=== PATIENT | female | born 1995 | race Caucasian/White ===

== ENCOUNTER 2016-07-30 16:08 | Emergency (ER) | payer OTHER ==
[~2016-07-30] VITALS: Ht 170.2 cm; Wt 75.0 kg
[~2016-07-30 16:08] MED LIST: AMOX500T PO; METR500T10 PO; MIREIUD I-UTERINE; SPRI28TA PO
[2016-07-30 16:09] VITALS: BP 134/75; PULSE 120; RESP 20; TEMP 97.7; O2SAT 100
[2016-07-30 20:07] VITALS: BP 153/87; PULSE 107; RESP 18; TEMP 98.8; O2SAT 100
[2016-07-30] MEDS ORDERED: SODIUM CHLOR 0.9% 1000 ML INJ 1,000 ML IV ONE ×2 (20:15)
[2016-07-30] MEDS ORDERED: SODIUM CHLORIDE 0.9% FLUSH 10 ML FLUSH IVF PRN (20:15)
--- NOTE | 2016-07-30 20:34 | RADRPT ---
EXAM DATE/TIME: 07/30/2016 20:13 [place] COMPARISON: No previous studies available for comparison. INDICATIONS : Palpitations MEDICAL HISTORY : None. SURGICAL HISTORY : None. ENCOUNTER: Initial ACUITY: >1 year PAIN SCORE: 0/10 LOCATION: chest FINDINGS: A single view of the chest demonstrates the lungs to be symmetrically aerated without evidence of mas s, infiltrate or effusion. The cardiomediastinal contours are unremarkable. Osseous structures are intact. CONCLUSION: No evidence of acute cardiopulmonary disease. Stepan Edgar MD on July 30, 2016 at 20:31 Board Certified Radiologist. This report was verified electronically.
[2016-07-30 20:49] VITALS: O2SAT 99
--- NOTE | 2016-07-30 20:56 | PD ---
HPI Chief Complaint: Informatics Physician Liaison Problem/Complaint Time Seen by Provider: 20:14 Travel History International Travel<30 days: No Contact w/Intl Traveler<30days: No Traveled to known affect area: No History of Present Illness HPI Patient is a 20 year old female who presents to ER with c/o of irregular vaginal bleeding and dizzyness. Patient reports that her filter changer Dr. Nena Kelly removed her IUD last week due to an infection. Reports that she has been on amoxicillin as well as flagyl since then. Reports that since then, she has had irregular vaginal bleeding and has been passing blood clots. Reports that she has been using heavy pads - around 5 per day. Reports that she has been feeling lightheaded and dizzy. Reports that she feels near syncope. Reports that she has also been having increased palpitations. Patient reports that she has been having palpitations for the past 2 years. Reports that whenever she feels anxious, she has palpitations and sob. Reports palpitations "come and go " and reports that nothing really makes her symptoms better or worse. Patient denies fever/chills. Denies n/v. Denies constipation/diarrhea. No other c/o. 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) Cancer: No Cardiovascular Problems: Yes (SVT) Chemotherapy: No Cerebrovascular Accident: No Diabetes: No Genitourinary: No Musculoskeletal: No Neurologic: No Psychiatric: No Reproductive: Yes Respiratory: No Immunizations Current: Yes Influenza Vaccination: No ?: Not LMP: 07/21/16 : 3 Para: 3 Past Surgical History Surgical History: No Previous Surgery Ear Surgery: No Endocrine Surgery: No Eye Surgery: No Gynecologic Surgery: Yes (post pardem 9 days ago with normal days ago) Hysterectomy: No Insulin Pump: No Joint Replacement: No Oral Surgery: No Other Surgery: No Social History Alcohol Use: No Tobacco Use: No Substance Use: No Allergies-Medications (Allergen,Severity, Reaction): Coded Allergies: No Known Allergies (Unverified , 07/23/16) Reported Meds & Prescriptions Reported Meds & Active Scripts Active Sprintec 28 (Norgestimate-Ethinyl Estradiol) 0.25-35 mg-Mcg Tab 1 Tab PO DAILY Metronidazole 500 Mg Tab 500 Mg PO BID Amoxicillin 500 Mg Tab 500 Mg PO TID Reported Mirena (Levonorgestrel (Iud)) 20 Mcg/24 Hr Iud 52 Mg I-UTERINE ONCE Review of Systems General / Constitutional: No: Fever Eyes: No: Visual changes HENT: Positive: Lightheadedness, No: Headaches Cardiovascular: Positive: Palpitations, No: Chest Pain or Discomfort Respiratory: No: Shortness of Breath Gastrointestinal: No: Abdominal Pain Genitourinary: Positive: Pelvic Pain, Vaginal Bleeding, No: Dysuria Musculoskeletal: No: Pain Skin: No Rash Neurologic: Positive: Dizziness, No: Weakness Psychiatric: No: Depression Endocrine: No: Polydipsia Hematologic/Lymphatic: No: Easy Bruising Physical Exam Narrative GENERAL: nad, nontoxic SKIN: Focused skin assessment warm/dry. HEAD: Atraumatic. Normocephalic. EYES: Pupils equal and round. No scleral icterus. No injection or drainage. ENT: No nasal bleeding or discharge. Mucous membranes pink and moist. NECK: Trachea midline. No JVD. CARDIOVASCULAR: Regular rate and rhythm. No murmur appreciated. RESPIRATORY: No accessory muscle use. Clear to auscultation. Breath sounds equal bilaterally. GASTROINTESTINAL: Abdomen soft, non-tender, nondistended. Hepatic and splenic margins not palpable. : pelvic exam performed with RN at bedside, patient with small amount of vaginal bleeding on exam with clots. no cmt or adnexal tenderness MUSCULOSKELETAL: No obvious deformities. No clubbing. No cyanosis. No edema. NEUROLOGICAL: Awake and alert. No obvious cranial nerve deficits. Motor grossly within normal limits. Normal speech. PSYCHIATRIC: Patient anxious on exam Data Data Last Documented VS Vital Signs Date Time Temp Pulse Resp B/P Pulse Ox O2 Delivery O2 Flow Rate FiO2 07/30/16 20:49 99 Room Air 07/30/16 20:07 98.8 107 18 153/87 Orders Thyroid Stimulating Hormone (07/30/16 20:14) Drug Screen, Random Urine (07/30/16 20:14) Electrocardiogram (07/30/16 20:14) Complete Blood Count With Diff (07/30/16 20:14) Comprehensive Metabolic Panel (07/30/16 20:14) Magnesium (Mg) (07/30/16 20:14) Prothrombin Time / Inr (Pt) (07/30/16 20:14) Act Partial Throm Time (Ptt) (07/30/16 20:14) Lipase (07/30/16 20:14) Chest, Single Ap (07/30/16 20:14) Ecg Monitoring (07/30/16 20:14) Iv Access Insert/Monitor (07/30/16 20:14) Oximetry (07/30/16 20:14) Sodium Chloride 0.9% Flush (Ns Flush) (07/30/16 20:15) Ed Urine Pregnancytest Poc (07/30/16 20:14) Sodium Chlor 0.9% 1000 Ml Inj (Ns 1000 M (07/30/16 20:15) Sodium Chlor 0.9% 1000 Ml Inj (Ns 1000 M (07/30/16 20:15) Gc And Chlamydia Pcr (07/30/16 20:14) Wet Prep Profile (07/30/16 20:14) Labs Laboratory Tests Test 07/30/16 20:30 White Blood Count 7.1 TH/MM3 Red Blood Count 4.75 MIL/MM3 Hemoglobin 13.5 GM/DL Hematocrit 39.8 % Mean Corpuscular Volume 83.7 FL Mean Corpuscular Hemoglobin 28.5 PG Mean Corpuscular Hemoglobin 34.1 % Concent Red Cell Distribution Width 14.4 % Platelet Count 236 TH/MM3 Mean Platelet Volume 8.8 FL Neutrophils (%) (Auto) 65.5 % Lymphocytes (%) (Auto) 27.8 % Monocytes (%) (Auto) 5.8 % Eosinophils (%) (Auto) 0.3 % Basophils (%) (Auto) 0.6 % Neutrophils # (Auto) 4.7 TH/MM3 Lymphocytes # (Auto) 2.0 TH/MM3 Monocytes # (Auto) 0.4 TH/MM3 Eosinophils # (Auto) 0.0 TH/MM3 Basophils # (Auto) 0.0 TH/MM3 CBC Comment DIFF FINAL Differential Comment Prothrombin Time 11.1 SEC Prothromb Time International 1.0 RATIO Ratio Activated Partial 31.9 SEC Thromboplast Time Clue Cells (Wet Prep) NONE SEEN Vaginal Trichomonas (Wet Prep) NONE SEEN Vaginal Yeast (Wet Prep) NONE SEEN Sodium Level 139 MEQ/L Potassium Level 3.4 MEQ/L Chloride Level 108 MEQ/L Carbon Dioxide Level 21.4 MEQ/L Anion Gap 10 MEQ/L Blood Urea Nitrogen 8 MG/DL Creatinine 0.72 MG/DL Estimat Glomerular Filtration 102 ML/MIN Rate Random Glucose 95 MG/DL Calcium Level 9.3 MG/DL Magnesium Level 2.1 MG/DL Total Bilirubin 0.5 MG/DL Aspartate Amino Transf 15 U/L (AST/SGOT) Alanine Aminotransferase 20 U/L (ALT/SGPT) Alkaline Phosphatase 69 U/L Total Protein 8.1 GM/DL Albumin 4.3 GM/DL Lipase 115 U/L Thyroid Stimulating Hormone 1.550 uIU/ML [address] [place] [address] Medical Decision Making Medical Screen Exam Complete: Yes Emergency Medical Condition: Yes Interpretation(s) ekg at 2045: nsr at 97bpm, qt/qtc: 349/404, no acute st or t wave changes Vital Signs Date Time Temp Pulse Resp B/P Pulse Ox O2 Delivery O2 Flow Rate FiO2 07/30/16 20:07 98.8 107 18 153/87 100 Room Air 07/30/16 20:07 130 18 07/30/16 16:09 97.7 120 20 134/75 100 Room Air Differential Diagnosis Irregular vaginal bleeding could be from recent IUD removal - she could be having a "normal" menstrual period at this time as she has always had "light" periods with her IUD, additional differential could include cervicitis, palpitations could be secondary to anemia, electrolyte abnormality, uti, dehydration Narrative Course Patient is a 20-year-old female with multiple complaints. Patient reports that she had an IUD removed 1 week ago secondary to an infection, she has been on amoxicillin as well as Flagyl, reports that she has had increased heavy vaginal bleeding over the past 4 days. Patient reports that she is unsure if this is normal as she has "light periods" with her IUD. Patient reports that she has been having near syncopal episodes with increased lightheadedness and dizziness for the past few days, she here for evaluation. On pelvic exam, patient does have scant blood in her vaginal vault, CMT or adnexal tenderness. Labs as well as studies ordered. Patient with palpitations for the past 2 years, EKG obtained that 2045 NSR at 97bpm with no acute st or t wave changes Vital Signs Date Time Temp Pulse Resp B/P Pulse Ox O2 Delivery O2 Flow Rate FiO2 07/30/16 20:49 99 Room Air 07/30/16 20:07 98.8 107 18 153/87 100 Room Air 07/30/16 20:07 130 18 07/30/16 16:09 97.7 120 20 134/75 100 Room Air Laboratory Tests Test 07/30/16 20:30 White Blood Count 7.1 TH/MM3 (4.0-11.0) Red Blood Count 4.75 MIL/MM3 (4.00-5.30) Hemoglobin 13.5 GM/DL (11.6-15.3) Hematocrit 39.8 % (35.0-46.0) Mean Corpuscular Volume 83.7 FL (80.0-100.0) Mean Corpuscular Hemoglobin 28.5 PG (27.0-34.0) Mean Corpuscular Hemoglobin 34.1 % Concent (32.0-36.0) Red Cell Distribution Width 14.4 % (11.6-17.2) Platelet Count 236 TH/MM3 (150-450) Mean Platelet Volume 8.8 FL (7.0-11.0) Neutrophils (%) (Auto) 65.5 % (16.0-70.0) Lymphocytes (%) (Auto) 27.8 % (9.0-44.0) Monocytes (%) (Auto) 5.8 % (0.0-8.0) Eosinophils (%) (Auto) 0.3 % (0.0-4.0) Basophils (%) (Auto) 0.6 % (0.0-2.0) Neutrophils # (Auto) 4.7 TH/MM3 (1.8-7.7) Lymphocytes # (Auto) 2.0 TH/MM3 (1.0-4.8) Monocytes # (Auto) 0.4 TH/MM3 (0-0.9) Eosinophils # (Auto) 0.0 TH/MM3 (0-0.4) Basophils # (Auto) 0.0 TH/MM3 (0-0.2) CBC Comment DIFF FINAL Differential Comment Prothrombin Time 11.1 SEC (9.8-11.6) Prothromb Time International 1.0 RATIO Ratio Activated Partial 31.9 SEC Thromboplast Time (24.3-30.1) Clue Cells (Wet Prep) NONE SEEN (NONE) Vaginal Trichomonas (Wet Prep) NONE SEEN (NONE) Vaginal Yeast (Wet Prep) NONE SEEN (NONE) Sodium Level 139 MEQ/L (136-145) Potassium Level 3.4 MEQ/L (3.5-5.1) Chloride Level 108 MEQ/L (98-107) Carbon Dioxide Level 21.4 MEQ/L (21.0-32.0) Anion Gap 10 MEQ/L (5-15) Blood Urea Nitrogen 8 MG/DL (7-18) Creatinine 0.72 MG/DL (0.50-1.00) Estimat Glomerular Filtration 102 ML/MIN Rate (>89) Random Glucose 95 MG/DL (74-106) Calcium Level 9.3 MG/DL (8.5-10.1) Magnesium Level 2.1 MG/DL (1.5-2.5) Total Bilirubin 0.5 MG/DL (0.2-1.0) Aspartate Amino Transf 15 U/L (15-37) (AST/SGOT) Alanine Aminotransferase 20 U/L (10-53) (ALT/SGPT) Alkaline Phosphatase 69 U/L (45-117) Total Protein 8.1 GM/DL (6.4-8.2) Albumin 4.3 GM/DL (3.4-5.0) Lipase 115 U/L (73-393) Thyroid Stimulating Hormone 1.550 uIU/ML 3rd Gen (0.358-3.740) Last Impressions Chest X-Ray 07/30/162013 Signed Impressions: Service Date/Time: Saturday, July 30, 2016 20:13 - CONCLUSION: No evidence of acute cardiopulmonary disease. Stepan Edgar MD All labs and all studies reviewed with patient in detail. Patient reports that she is feeling much better at this time. Patient will follow up with her primary care doctor and will return to ER as needed. Diagnosis Primary Impression: Dizziness Additional Impressions: Palpitations Hypokalemia Patient Instructions: General Instructions Additional Instructions: Please stop the primary care doctor as well as your filter changer Please follow-up with all cultures from today Please drink plenty of fluids Return to emergency room if symptoms worsen or progress Return to the emergency room as needed Med/Other Pt SpecificInfo: Prescription(s) given Disposition: 01 DISCHARGE HOME Condition: Stable DeondreBernadette July 30, 2016 20:56
[2016-07-30 21:22] LABS: AUTOMATED NEUTROPHIL # 4.7 TH/MM3 (1.8-7.7); BASOPHIL % 0.6 % (0.0-2.0); EOSINOPHIL % 0.3 % (0.0-4.0); HEMATOCRIT 39.8 % (35.0-46.0); HEMO FLAGS DIFF FINAL; LYMPH % 27.8 % (9.0-44.0); MEAN CELL VOLUME 83.7 FL (80.0-100.0); MEAN CORPUSCULAR HEMOGLOBIN 28.5 PG (27.0-34.0); MEAN CORPUSCULAR HGB CONC 34.1 % (32.0-36.0); MONO % 5.8 % (0.0-8.0); NEUT % 65.5 % (16.0-70.0); PLATELET COUNT 236 TH/MM3 (150-450); RED BLOOD COUNT 4.75 MIL/MM3 (4.00-5.30); RED CELL DISTRIBUTION WIDTH 14.4 % (11.6-17.2); WHITE BLOOD COUNT 7.1 TH/MM3 (4.0-11.0)
[2016-07-30 21:28] LABS: APTT (PATIENT) 31.9 SEC (24.3-30.1); PROTHROMBIN TIME - PATIENT 11.1 SEC (9.8-11.6)
[2016-07-30 21:41] LABS: ANION GAP 10 MEQ/L (5-15); AST (GOT) 15 U/L (15-37); BICARBONATE 21.4 MEQ/L (21.0-32.0); BLOOD UREA NITROGEN 8 MG/DL (7-18); CHLORIDE 108 MEQ/L (98-107); GLOMERULAR FILTRATION RATE 102 ML/MIN (>89); MAGNESIUM 2.1 MG/DL (1.5-2.5); POTASSIUM 3.4 MEQ/L (3.5-5.1); SODIUM (NA) 139 MEQ/L (136-145)
[2016-07-30 21:52] LABS: ALKALINE PHOSPHATASE 69 U/L (45-117); ALT (GPT) 20 U/L (10-53); TOTAL BILIRUBIN ADULT 0.5 MG/DL (0.2-1.0)
--- NOTE | 2016-07-30 22:33 | EKG ---
Date Performed: 07/30/2016 Time Performed: 20:46:57 PTAGE: 20 years EKG: Sinus rhythm WITH SINUS ARRHYTHMIA NORMAL ECG PREVIOUS TRACING : 09/03/2015 18.04 No significant change from previous tracing noted. DOCTOR: Darrell Reynoso Interpretating Date/Time 07/30/2016 22:32:04
[2016-07-30] MEDS ORDERED: POTASSIUM CHLORIDE 10 MEQ CONTROLLED RELEASE TAB PO ONE (22:45)
[2016-07-30 22:53] VITALS: BP 128/62; PULSE 80; RESP 18; O2SAT 100
[2016-07-30 23:09] LABS: CHLAMYDIA PCR NOT DETECTED (NOT DETECT); NEISSERIA PCR NOT DETECTED (NOT DETECT)
== END 2016-07-30 23:12 | disposition home or self-care (01) ==
LOC: NEPD 16:08
DX: R42 Dizziness and giddiness (principal); R00.2 Palpitations; E87.6 Hypokalemia; N93.9 Abnormal uterine and vaginal bleeding, unspecified; I47.1 Supraventricular tachycardia
CPT/HCPCS: 71010; 80053; 83690; 83735; 84443; 84703; 85025; 85610; 85730; 87210; 87491; 87591; 93005; 99284; J7030